=== PATIENT | female | born 1950 | race Caucasian/White ===

== ENCOUNTER → 2018-12-15 16:02 | Outpatient (CLI) | payer MEDICARE, SELFPAY | PROVIDERS: Visit Provider Obstetrics & Gynecology | DX: R30.0 Dysuria (principal) | CPT/HCPCS: 87086; 87088 ==

== ENCOUNTER → 2020-02-05 16:08 | Outpatient (CLI) | payer MEDICARE, SELFPAY ==
[2020-02-08 16:31] LABS: HPV APTIMA, High Risk Negative (Negative)
[2020-02-08 16:33] LABS: HPV Reflexed? YES, CHARGE PATIENT
== END ==
PROVIDERS: Visit Provider Student in an Organized Health Care Education/Training Program
DX: Z12.4 Encounter for screening for malignant neoplasm of cervix (principal)
CPT/HCPCS: 87624; 88175; G0145

== ENCOUNTER 2020-05-22 12:19 | Day surgery (SDC) | payer MEDICARE, SELFPAY ==
--- NOTE | 2020-05-21 09:47 | EKG12_ITS ---
Test Reason : PRE-OP Blood Pressure : / mmHG Vent. Rate : 072 BPM Atrial Rate : 072 BPM P-R Int : 142 ms QRS Dur : 088 ms QT Int : 380 ms P-R-T Axes : 012 052 040 degrees QTc Int : 416 ms Normal sinus rhythm Normal ECG Confirmed by RADHA MCCOY, MARKELL ([id number]), news copy editor KYLEE BARBOZA ([id number]) on 05/22/2020 10:51:20 AM Referred By: Deanna North Confirmed By:MARKELL GARCIA MD
[2020-05-21 11:12] LABS: Hematocrit 43.2 % (37-47); Hemoglobin 14.1 g/dL (12.0-15.0); Mean Corp Hgb Conc 32.6 g/dL (32-36); Mean Corpuscular Hgb 29.3 pg (27.0-32.0); Mean Corpuscular Volume 89.8 fL (81-99); Mean Platelet Vol. 10.2 fl (6.2-12.0); Platelet Count 335 K/mm3 (150-450); RBC Distribution Width CV 12.5 % (11.6-14.6); RBC Distribution Width SD 41.3 fl (35.1-43.9); Red Blood Count 4.81 M/mm3 (4.2-5.4); White Blood Count 9.6 K/mm3 (4.4-11.0)
--- NOTE | 2020-05-21 17:43 | HP.PCM_ITS ---
History and Physical Date of Admission: 05/22/20 HPI Kateryna Avilez, a 70 year old female 2 0 0 0 2, presents for Exam under anesthesia, vaginal/cervical biopsy on May 22, 2020 at 1:50. Noted vaginal and cervical erosion secondary to pessary this summer 2019. Patient had pessary holiday and had several visits to evaluate healing. She had been using estrogen cream, increased dosing as well. She continues to have erosion on most recent exam. As this has been3-4 months of nonhealing, with friability noted on last exam, decision for biopsy was made. Due to bleeding on last exam, decision for OR evaluation was made. MEDICATIONS HISTORY: Current medications prescribed by our practice are: 1. estradiol 0.01% (0.1 mg/gram) vaginal cream, 1 gram per vagina twice weekly 2. Trimo-Burt Jelly 0.025 %-0.01 % vaginal, apply prn Patient is also takin. Prilosec 10 mg Capsule, Delayed Release(E.C.), daily 2. potassium 99 mg tablet, daily 3. triamterene 37.5 mg-hydrochlorothiazide 25 mg capsule 4. levothyroxine 50 mcg tablet, 1 daily Medical History Hypertension, GERD, Hiatal hernia, hypothyroidism ALLERGIES: NKDA, NKDA, Cipro, Lightheaded, severe gi distress, Pyridium, Lightheadedness, severe gi distress, Cipro, Stomach ache, Pyridium, Stomach ache, Macrobid, Feels hot or feverish, Triamterene and Rash SOCIAL HISTORY: Alcohol Use - RARELY Smoking - denies smoking Drugs - denies FAMILY HISTORY: Family history of Colon Cancer. Mother: Renal Cell CA. MENSTRUAL HISTORY: LMP Known?- Postmenopausal, age 48, Age Onset Menarche - 14 PAST PREGNANCIES: Total Pregnancies - 2; Full Term Pregnancies - 2; Premature - 0; Abortions, Induced - 0; Abortions, Spontaneous - 0; Ectopics - 0; Multiple Births - 0; Living Children - 2 SURGICAL HISTORY: 1. Gallbladder/Appy, ; - 2. cataract surgery bilateral, 2018 ; - Review of Systems: GENERAL - Denies fever, or chills SKIN - Denies skin changes EYES - Denies visual changes EARS - Denies difficulty hearing NOSE - Denies nasal congestion or bleeding MOUTH - Denies sore throat or difficulty swallowing NECK - Denies pain or swelling RESPIRATORY - Denies shortness of breath or wheezing CARDIOVASCULAR - Denies palpitations or chest pain GASTROINTESTINAL - Denies nausea, vomiting, diarrhea, constipation GENITOURINARY - pessary MUSCULOSKELETAL - Denies joint or muscle pain NEUROLOGICAL - Denies localized numbness or weakness PSYCHIATRIC - Denies depression or anxiety ENDOCRINE - Denies heat or cold intolerance, weight loss or gain HEMATO-IMMUNOLOGIC - Denies excesive bleeding with cuts PHYSICAL EXAM BP- 164/78 Sitting, Right arm, regular cuff Weight- 151.95608 lbs Height- 62.50 inch BMI:27.23 CONSTITUTIONAL - NAD, well nourished, and well developed SKIN - No rash, lesions, or ulcers HEENT - Normocephalic, PERRLA, EOMI NECK - No nodes, no nuchal rigidity and thyroid normal size and texture LYMPH NODES - Palpation of lymph nodes in neck and groins within normal limits LUNGS - normal respiratory rate and rhythm ABDOMEN - Without hepatosplenomegaly, distention, masses, rebound, or guarding; normal bowel sounds; no hernias EXTREMITIES - No edema or calf tenderness NEUROLOGICAL - Cranial nerves II-XII grossly intact PSYCHIATRIC - A and O to time, place, person, mood and affect External Genitial Vagina - non-tender without lesions Urethra/Urethral Meatus - non-tender Bladder - non-tender Vagina - atrophy noted Cervix - Stable from last visit. Bleeding with minimal manipulation with sp eculum. and Mostly posterior and left cervix/vaginal region ASSESSMENT/PLAN: 1. Erosion And Ectropion Of Cervix Uteri Stable on exam, friable on exam. Bleeding more easily today. 3 months since original erosion noted. Due to lack of improvement over time without pessary use, will plan for EUA, biopsy Patient amenable. In OR due to bleeding risk and for adequate visualization of erosion areas. R/B/A discussed. Risks include, but are not limited to: risk of bleeding to the point of transfusion, infection, injury to surrounding tissue such as bowel or bladder requiring prolonged luevano use, VTE, ICU admission. Pt aware and consented Labs and EKG preop
[2020-05-22] VITALS (7 sets, daily range): BP systolic 122–129; BP diastolic 52–73; PULSE 78–87; RESP 16–18; TEMP 36.7–36.8; O2SAT 95–100; BMI 26.9
--- NOTE | 2020-05-22 | IMM_PTH ---
PATIENT: BARBARA BARTHOLOMEW [place] [facility] [place][id number] AGE/SX: 70/F ROOM: RE05/22/[address]: Dr. Deanna North DO : 1950 BED: DIS: 05/22/2020 SPEC #: [id number] RECD: 05/26/20 11:19 STATUS: ANDREW REQ #: [id number] DAVON: 05/22/20 00:[address]: Deanna North DEPT: IMMUNOHISTOCHEMISTRY RECD BY: Shani Hsu ENTERED: 05/26/20 11:20 SP TYPE: IMMUNO OTHR DR: Dr. Carlos Manuel Rm MD Tissues: Uterine cervix, NOS Procedures: p16 (initial) KI-67 (add) PHYSICIAN & INSTITUTION [place] [id number] SPECIMEN INFORMATION: Tissue Source: Cervical biopsy Clinical Info: Cervical and vaginal erosion Specimen Number: [id number] CPT code: 41618, 07639 METHODOLOGY: Deparaffinized sections of prefer/formalin-fixed tissue or PAP/DQ stained slides are incubated with monoclonal/polyclonal antibodies/oligonucleotide probes. Localization is made via biotin free immunoperoxidase method. Appropriate controls are performed and reacted as expected. Results on target cell population are indicated in the following table: RESULTS: ANTIBODY / CLONE RESULT P16 (E6H4) positive, focal, patchy Ki-67 (30-9) negative These tests were developed and their performance characteristics determined by [facility]. They may not have been cleared or approved by the U.S. Food and Drug Administration. The FDA has determined that such clearance or approval is not necessary. The above immunohistochemical/dualISH markers are ordered and reviewed by the Pathologist. INTERPRETATION: Cervical biopsy: Focal HPV change suspected. AM:eugene 05/27/20
[2020-05-22] MEDS: Lactated Ringers 1,000 ML 100 ML IV (13:15)
--- NOTE | 2020-05-22 13:38 | DCINST_ITS ---
Discharge Activity: Return to Normal Activity, May Shower May resume sexual activity in: 4 weeks Weight Bearing Status: Weight bearing as tolerated Call your doctor if you observe: Inability to urinate, Inability to have a bowel movement, Using more than one pad per hour, Shortness of breath Allergies/Adverse Reactions: Allergies ciprofloxacin Allergy (Verified 05/22/20 12:53) NEEDS FOLLOW-UP nitrofurantoin Allergy (Verified 05/22/20 12:52) NEEDS FOLLOW-UP Medications to take at Discharge Acetaminophen [Tylenol Extra Strength] 500 - 1,000 mg PO Q6H PRN PRN 05/16/20 Cholecalciferol (Vitamin D3) [Vitamin D3] 2,000 unit PO DAILY 05/16/20 Colon Health 1 tab PO DAILY 05/16/20 Levothyroxine Sodium [Synthroid] 50 mcg PO DAILY 05/16/20 Omeprazole Magnesium 20 mg PO DAILY 05/16/20 Potassium Chloride 10 meq PO DAILY 05/16/20 Triamterene 37.5MG/Hctz 25MG [Dyazide (G)] 1 cap PO DAILY 05/16/20 Primary Care Physician: Carlos Manuel Rm MD [Primary Care Provider] - Test Results: Test results from this visit will be discussed in further detail at your follow- up appointment, if applicable. Please Follow Up With: Deanna North DO When: Previously scheduled appointment Proposed Discharge Date: 05/22/20
--- NOTE | 2020-05-22 13:38 | PCM.OPRPT ---
Report of Operation Date of Procedure: 05/22/20 Pre-Operative Diagnosis: Nonhealing cervical and vaginal erosions after pessary Post-Operative Diagnosis: Nonhealing cervical and vaginal erosions after pessary Surgery/Procedure Performed:: Exam under anesthesia, cervical biopsy Description of Surgical Findings:: Normal-appearing external genitalia, moderate uterine descensus. Anterior prolapse. Small areas of erosion laterally at the cervix on both sides left larger than right. Right erosion minimal at this time. Left erosion appeared to be smaller than exam in office last. Specimen's removed: Cervical biopsy Estimated Blood Loss (mL): 10 cc Fluids Replaced: 600 cc Description of Procedure: Patient taken to the operating room anesthesia initiated. Patient placed in the dorsal lithotomy position and prepped and draped in the usual sterile fashion. Weighted speculum placed in the posterior vagina and Lucas retractor utilized to visualize the cervix. Findings as previously dictated above. 2 cervical biopsies were taken on the left side at the erosion edge. Monsel's placed at biopsy sites, hemostatic. At the end of the procedure needle, lap, sponge counts were correct x2.
[2020-05-22] MEDS: FERRIC SUBSULFATE 8 GM SOLN (13:55)
--- NOTE | 2020-05-22 14:05 | CER_PTH ---
PATIENT: BARBARA BARTHOLOMEW LOC: [facility] – [place] U#:[id number] AGE/SX: 70/F ROOM: RE05/22/[address]: Dr. Deanna North DO : 1950 BED: DIS: 05/22/2020 SPEC #: [id number] RECD: 05/22/20 14:51 STATUS: ANDREW RE #: [id number] DAVON: 05/22/20 14:[address]: Deanna North DEPT: SURGICAL PATHOLOGY RECD BY: Lee Ann Mckee ENTERED: 05/23/20 07:28 SP TYPE: CERV OTHR DR: Dr. Carlos Manuel Rm MD Tissues: Uterine cervix, NOS Procedures: Surgery Specimen Level IV HEADER OPERATION: Exam under anesthesia with cervical biopsy PRE-OP DIAGNOSIS: Cervical and vaginal erosion TISSUE SUBMITTED: Cervical biopsy MICROSCOPIC DIAGNOSIS Cervix, biopsy: Acute cervicitis. Focal HPV change suspected. See comment. AM:eugene 05/26/20 COMMENT Results from immunohistochemistry ([id number]) for surrogate HPV marker (p16) will be reported separately. MICROSCOPIC DESCRIPTION Slides are reviewed. GROSS DESCRIPTION Received in fixative is one container labeled with the patient's name and designated cervical biopsy. The specimen consists of two irregular fragments of light [place] soft tissue that in aggregate measure 0.6 x 0.3 x 0.1 cm. The specimen is totally submitted in one cassette. / SJ:rg 05/23/20 TC:2 CPT: 04067
== END 2020-05-22 15:23 | disposition home or self-care (01) ==
LOC: SDC 12:20 → AC 12:23
PROVIDERS: PCP Family Medicine; Referring Provider Student in an Organized Health Care Education/Training Program; Visit Provider Student in an Organized Health Care Education/Training Program
PROC: (CPT 57410; principal; 2020-05-22 13:55)
DX: N72 Inflammatory disease of cervix uteri (principal); E03.9 Hypothyroidism, unspecified; I10 Essential (primary) hypertension; K21.9 Gastro-esophageal reflux disease without esophagitis; Z79.899 Other long term (current) drug therapy; Z88.1 Allergy status to other antibiotic agents
CPT/HCPCS: 00940; 57500; 36415; 85027; 86850; 86900; 86901; 87426; 88305; 88341; 88342; 93005; C9803; J7120; J2405

== ENCOUNTER → 2021-11-23 | Outpatient (CLI) | payer MEDICARE, SELFPAY | END | disposition home or self-care (01) | LOC: LABSPEC 13:53 | PROVIDERS: PCP Family Medicine; Visit Provider Student in an Organized Health Care Education/Training Program | DX: N39.0 Urinary tract infection, site not specified (principal) | CPT/HCPCS: 87086; 87088 ==

== ENCOUNTER 2022-05-06 09:36 | Observation (INO) | payer MEDICARE, SELFPAY ==
--- NOTE | 2022-04-28 08:54 | EKG12_ITS ---
Test Reason : PRE-OP Blood Pressure : / mmHG Vent. Rate : 064 BPM Atrial Rate : 064 BPM P-R Int : 136 ms QRS Dur : 074 ms QT Int : 398 ms P-R-T Axes : 061 054 036 degrees QTc Int : 410 ms Normal sinus rhythm Nonspecific ST abnormality Abnormal ECG Confirmed by KIM MCCOY, BESSY ([id number]), medical transcription editor KYLEE BARBOZA ([id number]) on 05/04/2022 10:58:05 AM Referred By: SANTOS Confirmed By:PAULIE ALVAREZ MD
[2022-04-28 10:03] LABS: Hematocrit 43.5 % (37-47); Hemoglobin 14.6 g/dL (12.0-15.0); Mean Corp Hgb Conc 33.6 g/dL (32-36); Mean Corpuscular Hgb 30.5 pg (27.0-32.0); Mean Platelet Vol. 9.8 fl (6.2-12.0); Platelet Count 338 K/mm3 (150-450); RBC Distribution Width CV 13.2 % (11.6-14.6); RBC Distribution Width SD 44.6 fl (35.1-43.9); Red Blood Count 4.78 M/mm3 (4.2-5.4); White Blood Count 8.3 K/mm3 (4.4-11.0)
[2022-04-28 10:50] LABS: Magnesium 1.8 mg/dL (1.6-2.6); Thyroid Stim Hormone (TSH) 1.95 uIU/mL (0.358-3.74)
[2022-04-28 14:27] LABS: Anion Gap 9 (5-15); BUN 26 mg/dL (7-18); BUN/Creat Ratio 24.8 RATIO (10-20); Calcium,Total 9.2 mg/dL (8.5-10.1); Chloride 104 mmol/L (98-107); Creatinine, Serum 1.05 mg/dL (0.55-1.02); EST Glomerular Filtration Rate 55 mL/min (>60); Est Glom Filt Rate - Afr Amer 66 mL/min (>60); Glucose 92 mg/dL (74-106); Potassium 4.1 mmol/L (3.5-5.1); Sodium Level 138 mmol/L (136-145)
[2022-05-06] VITALS (13 sets, daily range): BP systolic 124–148; BP diastolic 53–80; PULSE 73–97; RESP 12–18; TEMP 36.4–36.9; O2SAT 94–100; BMI 28.5
--- NOTE | 2022-05-06 | HYST_PTH ---
PATIENT: BARBARA BARTHOLOMEW LOC: [facility] U#:[id number] AGE/SX: 72/F ROOM: [facility] [place] RE05/06/[address]: Dr. Deanna North DO : 1950 BED: 1 DIS: 05/08/2022 SPEC #: [id number] RECD: 05/07/22 09:54 STATUS: ANDREW MUNIZ #: [id number] DAVON: 05/06/22 00:[address]: Deanna North DEPT: SURGICAL PATHOLOGY RECD BY: José Peterson ENTERED: 05/07/22 09:54 SP TYPE: HYSTERECT OTHR DR: Dr. Carlos Manuel Rm MD Tissues: Uterus, NOS Procedures: Surgery Specimen Level V HEADER OPERATION: ERAS, TVH, anterior repair, cystoscopy, uterosacral PRE-OP DIAGNOSIS: Pelvic organ prolapse TISSUE SUBMITTED: Uterus, cervix MICROSCOPIC DIAGNOSIS Uterus, hysterectomy: Cervix ? nabothian cysts and mild chronic inflammation. Endometrium ? inactive endometrium with focal cystic change. Myometrium ? focal superficial adenomyosis and Banal calcifications of vessel schuster. AM:eugene 05/10/2022 MICROSCOPIC DESCRIPTION Slides are reviewed. GROSS DESCRIPTION Received in fixative is one container labeled with the patient's name and designated uterus, cervix. The specimen consists of a hysterectomy specimen consisting of uterus with cervix weighing 20 gm and measuring 6.5 x 3 x 2 cm. The serosal surface is focally ragged. The ectocervical mucosa is unremarkable. The external os is pinpoint in contour. The endocervical canal measures 3.4 cm in length and the endocervical mucosa is unremarkable. The endometrial cavity is narrow and measures up to 1 cm in length. Sections of the uterine wall do not reveal any mass lesion and it measures up to 1 cm in thickness. 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 / SJ:eugene 05/07/2022 TC:5 CPT: 73912
[2022-05-06] MEDS: Gabapentin 600 MG Tablet PO (06:15)
[2022-05-06] MEDS: Magnesium 2 GM for ERAS IV (06:16)
[2022-05-06] MEDS: Acetaminophen 500 MG Tablet 1000 MG PO ×3 (06:16→17:58)
[2022-05-06] MEDS: Lactated Ringers 1,000 ML 40 ML IV ×2 (06:16→09:00)
[2022-05-06] MEDS: Scopolamine 1mg/72hr Patch 1 PATCH TD (06:58)
--- NOTE | 2022-05-06 06:58 | PCM.HP.BLA ---
History and Physical Date of Admission: 05/06/22 HPI: 72-year-old female with pelvic organ prolapse plan for total vaginal hysterectomy, bilateral salpingo-oophorectomy, anterior and posterior repair, uterosacral ligament suspension, and cystoscopy. Denies headache or vision changes, chest pain or shortness of breath, nausea or vomiting, diarrhea or constipation, fevers or chills, skin rashes, vaginal bleeding. 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 History of recurrent UTIs 2. Hypertension 3. GERD 4. Prolapse 5. Hypothyroidism Surgical history: 1. Cataract surgery in 2019 2. Cholecystectomy 3. Appendectomy 4. Intraoperative colposcopy Medications 1. Caltrate 2. Clobetasol cream 3. Cystex 4. Omeprazole 5. Potassium chloride 6. Triamterene-hydrochlorothiazide 7. Levothyroxine 8. Fluticasone Social history: Denies tobacco, alcohol, drug use Allergies: Macrobid, ciprofloxacin, Pyridium, Bactrim Review of system: Negative otherwise stated above Physical exam Blood pressure 140/80, heart rate 76, respirations 17, temp 97.6 ?F, oxygen saturation 98% on room air General: No acute distress HEENT: Normal cephalic/atraumatic, PERRLA Cardiac: Regular rate and rhythm no murmur rubs or gallops Respiratory: Clear to auscultation bilaterally Abdomen: Soft, nontender, nondistended Extremities: No edema Neurologic: No focal deficits, cranial nerves II through XII grossly intact Musculoskeletal: Strength out of 5 throughout all extremities Assessment/plan: 72-year-old female with pelvic organ prolapse plan for total vaginal hysterectomy, bilateral salpingo-oophorectomy, anterior and posterior repair, uterosacral ligament suspension, and cystoscopy. -All risk, benefits, alternatives discussed with patient. Risk include but are not limited to: Risk of bleeding to the point transfusion, infection, injury to surrounding tissue including bowel/bladder/major abdominal vessels, VTE, ICU admission. Patient aware and consented.
[2022-05-06 07:11] LABS: Bedside Glucose 85 mg/dL (74-106)
[2022-05-06] MEDS: Cefazolin 2 GM in 0.9% Normal Saline 100 ML IV (07:34)
[2022-05-06] MEDS: Lubricating Jelly 60 GM Tube 30 GM (07:35)
--- NOTE | 2022-05-06 07:35 | PCM.OPRPT ---
Report of Operation Date of Procedure: 05/06/22 Pre-Operative Diagnosis: Pelvic organ prolapse Post-Operative Diagnosis: Pelvic organ prolapse Surgery/Procedure Performed:: Total vaginal hysterectomy, uterosacral ligament suspension, anterior repair, cystoscopy Description of Surgical Findings:: Normal-appearing external genitalia. Grade 3 anterior and cervical prolapse. Grade 1 posterior prolapse. Cervix flush with vagina. Type of Anesthesia: General Specimen's removed: Uterus and cervix Estimated Blood Loss (mL): 50 cc Fluids Replaced: 1200cc Description of Procedure: Indication/risk/benefits: 72-year-old female with pelvic organ prolapse plan for total vaginal hysterectomy, bilateral salpingo-oophorectomy, anterior and posterior repair, uterosacral ligament suspension, cystoscopy. All risk, benefits, alternatives discussed with patient. Risk include but are not limited to: Risk of bleeding twin transfusion, infection, injury to surrounding tissue including bowel/bladder/uterine perforation, VTE, ICU admission. Patient were consented. Procedure: Patient taken to the operating room and placed under general anesthesia. Patient placed in the dorsal lithotomy position prepped and draped in the usual sterile fashion. Yu catheter placed. Weighted speculum placed in the posterior vagina and right angle placed anteriorly. Clamps placed at the anterior and posterior cervix. 10 cc 2% lidocaine injected circumferentially at the cervicovaginal junction. Scalpel incised tissue at the cervicovaginal junction. Dissection of vaginal mucosa away from the cervix completed with French scissors and blunt dissection. Posterior peritoneum identified grasped and incised with French scissors. Posterior peritoneum tagged with stitch. Long weighted speculum placed. Further dissection anteriorly completed with blunt and sharp dissection. Anterior peritoneum grasped with pickups and incised using scissors. Left uterosacral and left cardinal ligaments suture-ligated. Right uterosacral and cardinal ligaments suture-ligated. Uterosacral ligaments were tagged. Dissection continued to the level of the utero ovarian ligament. Left utero-ovarian ligament grasped with a clamp, French scissors used to free left cornua. Free tie was placed at the utero-ovarian ligament, followed by a transfixation suture. Filmy colonic adhesions noted at the right cornua, lysed with Metzenbaum scissors, allowing colon and epiploic fat to fall away from this area. Right utero-ovarian ligament grasped with a clamp, French scissors used to free right cornua. Right utero-ovarian ligament free tied and then suture ligated with transfixation stitch. Uterus removed. Unable to visualize bilateral tubes and ovaries due to bowel and epiploic fat location in pelvis. Therefore her bilateral salpingo-oophorectomy was not completed. Posterior peritoneum was sutured with a running stitch. Uterosacral ligaments were tied together. Colpotomy was sutured closed with a running stitch. Anterior repair was then completed. Anterior vagina was grasped with 2 Allis clamps. 10 cc lidocaine was used for hydrodissection. Scalpel used to incise vaginal mucosa between Allis clamps. Additional Allis clamps placed laterally. Bladder dissected away from vaginal epithelium using Metzenbaum scissors and blunt dissection. Interrupted stitch placed at the junction of the endopelvic fascia and vaginal epithelium in order to lift the bladder away from the vaginal epithelium. Vaginal epithelium trimmed and then reapproximated with running locking stitch. On inspection posterior prolapse was not noted, repair not completed. Yu catheter removed. Cystoscopy completed noting intact bladder dome and bilateral ureteral jets. Yu catheter replaced. At the end of the procedure all needle, lap, sponge counts were correct. Urine output: 500 cc clear urine Complications None.
[2022-05-06] MEDS: Lidocaine 2% /Epi 1:100 (20ml) 20 ML VIAL (08:58)
[2022-05-06] MEDS: Ondansetron 4 MG/2 ML Vial IV (09:32)
[2022-05-06] MEDS: oxyCODONE 5 MG Tablet PO (12:29)
[2022-05-06] MEDS: Ibuprofen 600 MG Tablet PO ×2 (15:43→21:08)
[2022-05-06] MEDS: Potassium Chloride Oral Tablet 10 MEQ PO (15:43)
[2022-05-06] MEDS: 0.9% Saline Lock 10 ML Syringe IV (15:52)
[2022-05-06] MEDS: Docusate Sodium 100 MG Capsule PO (21:08)
[2022-05-06] MEDS: Pantoprazole Sodium 40 MG Tablet PO (21:08)
[2022-05-06] MEDS: Levothyroxine 50 MCG Tablet PO (21:08)
[2022-05-07 00:51] VITALS: BP 118/61; PULSE 85; RESP 18; TEMP 36.6; O2SAT 93
[2022-05-07] MEDS: Acetaminophen 500 MG Tablet 1000 MG PO ×4 (01:00→17:39)
[2022-05-07 04:45] VITALS: BP 118/63; PULSE 88; RESP 18; TEMP 37.1; O2SAT 97
[2022-05-07] MEDS: Ibuprofen 600 MG Tablet PO ×3 (04:50→15:43)
[2022-05-07 06:13] LABS: Hematocrit 36.2 % (37-47); Mean Corp Hgb Conc 33.1 g/dL (32-36); Mean Corpuscular Hgb 29.9 pg (27.0-32.0); Mean Corpuscular Volume 90.3 fL (81-99); Mean Platelet Vol. 9.8 fl (6.2-12.0); Platelet Count 348 K/mm3 (150-450); Red Blood Count 4.01 M/mm3 (4.2-5.4); White Blood Count 10.6 K/mm3 (4.4-11.0)
[2022-05-07 06:39] LABS: Anion Gap 7 (5-15); BUN 19 mg/dL (7-18); BUN/Creat Ratio 22.5 RATIO (10-20); Calcium,Total 8.3 mg/dL (8.5-10.1); Chloride 96 mmol/L (98-107); Creatinine, Serum 0.85 mg/dL (0.55-1.02); EST Glomerular Filtration Rate 70 mL/min (>60); Est Glom Filt Rate - Afr Amer 85 mL/min (>60); Estimated Creatinine Clearance 48.76 ml/min; Glucose 120 mg/dL (74-106); Potassium 3.8 mmol/L (3.5-5.1); Sodium Level 129 mmol/L (136-145)
[2022-05-07 07:39] VITALS: BP 121/48; PULSE 84; RESP 18; TEMP 36.7; O2SAT 96
[2022-05-07 07:45] VITALS: O2SAT 94
[2022-05-07] MEDS: Ondansetron ODT 4 MG Tablet PO ×2 (07:46→21:51)
--- NOTE | 2022-05-07 08:22 | PCM.PN.OB ---
Subjective Subjective Pain controlled. No bleeding. Tolerating fluids and some breakfast. Feeling worn out. Objective Data Objective Data Vital Signs: Vital Signs Temp Pulse Resp BP Pulse Ox O2 Del Method O2 Flow Rate 98.1 F 84 18 121/48 H 96 Room Air 4 05/07/22 07:39 05/07/22 07:39 05/07/22 07:39 05/07/22 07:39 05/07/22 07:39 05/07/22 07:48 05/06/22 10:45 Oxygen Flow Rate (L/min) 4 Oxygen Delivery Method Room Air Weight: 73 kg Body Mass Index (BMI) 28.5 Intake & Output: Intake and Output for Last 24 Hours 05/05/22 05/06/22 05/07/22 23:59 23:59 23:59 Intake Total 3434 / 3434 1200 / 1200 Output Total 860 / 860 1000 / 1000 Balance 2574 / 2574 200 / 200 Lab / Micro Data Attestation: I reviewed the patient's lab results. Result Diagrams: 05/07/22 05:25 05/07/22 05:25 Labs: Laboratory Results - last 24 hr 05/07/22 05:25: Sodium 129 L, Potassium 3.8, Chloride 96 L, Carbon Dioxide 26.0, Anion Gap 7, BUN 19 H, Creatinine 0.85, Estim Creat Clear Calc 48.76, Est GFR (MDRD) Af Amer 85, Est GFR (MDRD) Non-Af 70, BUN/Creatinine Ratio 22.5 H, Glucose 120 H, Calcium 8.3 L 05/07/22 05:25: WBC 10.6, RBC 4.01 L, Hgb 12.0, Hct 36.2 L, MCV 90.3, MCH 29.9, MCHC 33.1, RDW Std Deviation 43.0, RDW Coeff of Aguila 13.0, Plt Count 348, MPV 9.8 Physical Exam Const alert, oriented x3 and no apparent distress General Appearance: comfortable HEENT normocephalic Resp normal respiratory effort, no use of accessory muscles and clear to auscultation bilaterally Cardio regular rate GI soft to palpation, non-tender, non-distended and no masses Extremity no pedal edema Neuro moves all extremities, no focal motor deficits and no sensory deficits noted Psych mental status grossly normal Assessment & Plan (1) Other acute postprocedural pain: PLAN: Postop day 1 status post total vaginal hysterectomy, uterosacral ligament suspension, anterior repair, cystoscopy for pelvic organ prolapse. Pain controlled. Tolerating diet. Slight hyponatremia noted this morning. Will give NS and repeat BMP at noon. If resolved will plan for discharge home today. (2) Hyponatremia:
--- NOTE | 2022-05-07 08:24 | PCM.DC ---
Discharge Instructions Diet Discharge Diet: No restrictions Activity Discharge Activity: Return to Normal Activity and May Shower May resume sexual activity in: 6 weeks Weight Bearing Status: Weight bearing as tolerated Lifting Restrictions: no greater than 10 pounds Dressing / Incision Call your doctor if your incision/area has: Continuous Slow Oozing, Increased Redness and Foul Smelling Discharge Call your doctor if you observe: Fever of 101 or Higher, Inability to urinate, Inability to have a bowel movement, Using more than 1 pad per hour, Shortness of breath, Swelling in the ankles, Chest pain and Uncontrolled pain Cleanse incision/area with: Soap & Water and Keep Dressing Clean & Dry Follow Up Care Please Follow Up With: Deanna North DO When: 2 weeks post operative appointment Test Results: Test results from this visit will be discussed in further detail at your follow-up appointment, if applicable. Discharge Plan Admission Admit Date/Time: 05/06/22 09:36 Primary Reason for Your Visit: Hysterectomy Attending Provider: Deanna North Primary Care Provider: Carlos Manuel Rm Discharge Orders/Prescriptions Prescriptions: New oxycodone 5 mg tablet 5 mg PO Q6H PRN (Reason: pain (scale score 7-10)) 3 Days Qty: 16 0RF Continued potassium chloride 10 MEQ capsule, extended release 10 meq PO DAILY triamterene-hydrochlorothiazid 1 CAP capsule 1 cap PO DAILY levothyroxine 50 MCG tablet 50 mcg PO QHS cholecalciferol (vitamin D3) 2,000 UNIT capsule 2,000 unit PO DAILY omeprazole magnesium 20 MG capsule,delayed release(DR/EC) 40 mg PO QHS fluticasone propionate [Flonase Allergy Relief] 50 mcg/actuation [place],Suspension 1 spray INTRANASAL DAILY Rx Instructions: administer into each nostril Referrals / Follow Up: Carlos Manuel Rm MD [Primary Care Provider] - Disposition Disposition (needs filled in before D/C Order can be placed): Home, Self Care
[2022-05-07] MEDS: 0.9% Saline Lock 10 ML Syringe IV (08:45)
[2022-05-07] MEDS: 0.9% Normal Saline 1,000 ML 100 ML IV (08:46)
--- NOTE | 2022-05-07 10:02 | CASEMGMT ---
JAMES CM in to discuss VILLARREAL form with patient. RN CM explained VILLARREAL form, patient voiced understanding. Pt signed form and filed in chart. Pt provided with a copy of signed VILLARREAL form. Patient had no further questions or concerns at this time.
[2022-05-07] MEDS: Docusate Sodium 100 MG Capsule PO ×3 (11:10→20:38)
[2022-05-07] MEDS: Potassium Chloride Oral Tablet 10 MEQ PO (11:10)
[2022-05-07] MEDS: Enoxaparin 40 MG/0.4 ML Syringe SC (11:10)
[2022-05-07] MEDS: Ensure Plus High Protein 120 ML LIQUID PO ×2 (11:47→17:38)
--- NOTE | 2022-05-07 11:50 | CASEMGMT ---
Social Work As per preadmissions nurse, pt has LW/POA, and had stated her spouse is her POA. Pt is not able to bring in the documents however. BRIT Soto
[2022-05-07 12:26] LABS: Anion Gap 8 (5-15); BUN 21 mg/dL (7-18); BUN/Creat Ratio 25.7 RATIO (10-20); Calcium,Total 8.2 mg/dL (8.5-10.1); Chloride 96 mmol/L (98-107); Creatinine, Serum 0.82 mg/dL (0.55-1.02); EST Glomerular Filtration Rate 73 mL/min (>60); Est Glom Filt Rate - Afr Amer 88 mL/min (>60); Estimated Creatinine Clearance 50.55 ml/min; Glucose 111 mg/dL (74-106); Potassium 3.8 mmol/L (3.5-5.1); Sodium Level 130 mmol/L (136-145)
--- NOTE | 2022-05-07 15:20 | CON.PCM.HO_ITS ---
Assessment & Plan Assessment/Plan (1) Hyponatremia: PLAN: Plan #Acute hyponatremia * sodium is 130; was 129 yesterday * TSH is WNL. She is on a diuretic which could be contributing to hyponatremia * check FeUrea, urine osmolality and serum osmolality as well as urine sodium * hold diuretic. Hydrate gently with IVF NS * trend sodium * if sodium worsens, consider nephrology consult * #PElvic prolapse: management as per primary team gynecology DVT prophylaxis: As per primary team Thank you for the courtesy of the consult. Please do not hesitate to reach out to hospitalist team with any questions or concerns. HPI Consult Data Date of Consult: 05/07/22 HPI Narrative Reason for Consultation: hyponatremia HPI Narrative: BARBARA BARTHOLOMEW, is a 72 F with a PMh as outlined who was admitted to the wardrobe consultant service for total vaginal hysterectomy, ?bilateral salpingo-oophorectomy, anterior and posterior repair, uterosacral ligament suspension, and cystoscopy o/a of pelvic prolapse. Hospitalist service was consulted for management of hyponatremia. Patient had sodium of 129 yesterday and sodium of 130 today. She denies any nausea or vomiting, and has been drinking adequate fluids. She is on a diuretic and also has hypothyroidism. Last TSH on 04/28/2022 was 1.95. REview of systems was otherwise negative. Labs showed last sodium of 130 this morning. [facility] Medical History (Updated 05/07/22 @ 08:[address] Deanna North, DO) Anxiety Arthritis Back pain Bladder disease Cancer Depression Gastric reflux History of diverticulosis History of edema History of hiatal hernia Hypertension Leg cramps Loss of hearing Low iron Non-smoker Post-menopausal Thyroid disease Wears glasses Home Medications cholecalciferol (vitamin D3) 50 mcg (2,000 unit) capsule 2,000 unit PO DAILY 05/16/20 [History Last Taken 05/05/22] levothyroxine 50 mcg tablet 50 mcg PO QHS 05/16/20 [History Last Taken 05/05/22] omeprazole magnesium 20 mg capsule,delayed release 40 mg PO QHS 05/16/20 [History Last Taken 05/05/22] potassium chloride 10 mEq capsule,extended release 10 meq PO DAILY 05/16/20 [History Last Taken 05/05/22] triamterene 37.5 mg-hydrochlorothiazide 25 mg capsule 1 cap PO DAILY 05/16/20 [History Last Taken 05/05/22] fluticasone propionate 50 mcg/actuation nasal spray,suspension (Flonase Allergy Relief) 1 spray intranasal DAILY 04/28/22 [History Last Taken 05/05/22] oxycodone 5 mg tablet 5 mg PO Q6H PRN pain (scale score 7-10) 3 days #16 tabs 05/06/22 [Rx Last Taken Unknown] Allergy/AdvReac Type Severity Reaction Status Date / Time ciprofloxacin Allergy NEEDS Verified 05/06/22 06:17 FOLLOW-UP nitrofurantoin Allergy NEEDS Verified 05/06/22 06:17 FOLLOW-UP sulfamethoxazole AdvReac Vomiting Verified 05/06/22 06:17 [From Bactrim] trimethoprim [From Bactrim] AdvReac Vomiting Verified 05/06/22 06:17 Surgical History Hx of appendectomy Hx of cervical biopsy Hx of cholecystectomy Hx of colonoscopy Hx of esophagogastroduodenoscopy Hx of left cataract extraction Hx of right cataract extraction Social History Smoking Status: Never smoker ROS Constitutional Constitutional: Denies anorexia, chills, fatigue, fever(s), malaise or weakness Eyes Eyes: Denies change in vision ENT HEENT: Denies dysphagia, headache(s) or sore throat Cardiovascular Cardiovascular: Denies chest pain, dyspnea on exertion, edema, lightheadedness, orthopnea, palpitations, paroxysmal nocturnal dyspnea, rapid heart rate or syncope Respiratory/Chest Respiratory/Chest: Denies cough, excessive phlegm production, shortness of breath at rest or shortness of breath with exertion Gastrointestinal Gastrointestinal: Denies abdominal pain, diarrhea, nausea or vomiting Genitourinary Genitourinary: Denies burning urination, dysuria or urinary frequency Musculoskeletal Musculoskeletal: Denies arthralgias Neurologic Neurologic: Denies confusion, dizziness, focal weakness, headache(s) or seizures Psychiatric Psychiatric: Denies anxiety Hematologic/Lymphatic Hematologic/Lymphatic: Denies anemia Physical Exam Const alert, oriented x3 and no apparent distress General Appearance: cooperative HEENT normocephalic, head/scalp atraumatic, hearing grossly normal bilaterally and moist oral mucous membranes Mouth: oral and palatal mucosa normal Neck no lymphadenopathy and supple Resp normal respiratory effort, no retractions, no use of accessory muscles and clear to auscultation bilaterally Cardio regular rate, regular rhythm, S1 normal heart sound, S2 normal heart sound and no murmurs GI normal to inspection, nondistended, normoactive bowel sounds, soft to palpation, non-tender and non-distended Extremity normal to inspection, full ROM and no clubbing, cyanosis or edema Neuro oriented x3, CN's II-XII intact bilaterally and moves all extremities Sensorium / Orientation: awake Motor Exam: strength 5/5 throughout Psych affect normal Lab / Micro Data Result Diagrams: 05/07/22 05:25 05/07/22 16:16 Labs: Laboratory Results - last 24 hr 05/07/22 05:25: Sodium 129 L, Potassium 3.8, Chloride 96 L, Carbon Dioxide 26.0, Anion Gap 7, BUN 19 H, Creatinine 0.85, Estim Creat Clear Calc 48.76, Est GFR (MDRD) Af Amer 85, Est GFR (MDRD) Non-Af 70, BUN/Creatinine Ratio 22.5 H, Glucose 120 H, Calcium 8.3 L 05/07/22 05:25: WBC 10.6, RBC 4.01 L, Hgb 12.0, Hct 36.2 L, MCV 90.3, MCH 29.9, MCHC 33.1, RDW Std Deviation 43.0, RDW Coeff of [place] 13.0, Plt Count 348, MPV 9.8 05/07/22 11:53: Sodium 130 L, Potassium 3.8, Chloride 96 L, Carbon Dioxide 26.0, Anion Gap 8, BUN 21 H, Creatinine 0.82, Estim Creat Clear Calc 50.55, Est GFR (MDRD) Af Amer 88, Est GFR (MDRD) Non-Af 73, BUN/Creatinine Ratio 25.7 H, Glucose 111 H, Calcium 8.2 L Charges/Coding Visit Charges Office Visits / Consults: 65234 IP Consult L3
[2022-05-07 15:52] VITALS: BP 127/64; PULSE 84; RESP 18; TEMP 36.7; O2SAT 95
[2022-05-07 17:18] LABS: Creatinine, Urine < 13.00 mg/dL (NO RANGE EST.); Urea Nitrogen, Urine 190 mg/dL (NO RANGE EST.); Urine Sodium 11 mmol/L (Not Establ.)
[2022-05-07 17:18] LABS: Anion Gap 7 (5-15); BUN 24 mg/dL (7-18); BUN/Creat Ratio 27.8 RATIO (10-20); Calcium,Total 7.8 mg/dL (8.5-10.1); Chloride 98 mmol/L (98-107); Creatinine, Serum 0.86 mg/dL (0.55-1.02); EST Glomerular Filtration Rate 68 mL/min (>60); Est Glom Filt Rate - Afr Amer 83 mL/min (>60); Estimated Creatinine Clearance 48.19 ml/min; Glucose 102 mg/dL (74-106); Potassium 4.1 mmol/L (3.5-5.1); Sodium Level 131 mmol/L (136-145)
[2022-05-07] MEDS: 0.9% Normal Saline 1,000 ML 125 ML IV (17:39)
[2022-05-07 19:41] LABS: Osmolality, Serum 278 mOsm/KG (280-301)
[2022-05-07 19:42] LABS: Osmolality, Urine 111 mOsm/KG
[2022-05-07 20:31] VITALS: BP 123/67; PULSE 75; RESP 18; TEMP 36.6; O2SAT 96
[2022-05-07] MEDS: Pantoprazole Sodium 40 MG Tablet PO (20:38)
[2022-05-08] MEDS: Acetaminophen 500 MG Tablet 1000 MG PO ×2 (00:37→06:54)
[2022-05-08] MEDS: 0.9% Normal Saline 1,000 ML 125 ML IV (00:38)
[2022-05-08 02:12] VITALS: BP 123/57; PULSE 79; RESP 18; TEMP 36.5; O2SAT 94
[2022-05-08 06:50] LABS: Anion Gap 7 (5-15); BUN 20 mg/dL (7-18); BUN/Creat Ratio 27.2 RATIO (10-20); Calcium,Total 7.7 mg/dL (8.5-10.1); Chloride 111 mmol/L (98-107); Creatinine, Serum 0.74 mg/dL (0.55-1.02); EST Glomerular Filtration Rate 82 mL/min (>60); Est Glom Filt Rate - Afr Amer 100 mL/min (>60); Estimated Creatinine Clearance 41.45 ml/min; Glucose 91 mg/dL (74-106); Potassium 3.8 mmol/L (3.5-5.1); Sodium Level 142 mmol/L (136-145)
[2022-05-08] MEDS: Levothyroxine 50 MCG Tablet PO (06:54)
--- NOTE | 2022-05-08 07:42 | PCM.DC.SUM ---
Providers Date of Admission: 05/06/22 Primary Care Physician: Dr. Carlos Manuel Rm MD Consultations 05/07/22 14:38 Consult: Hospitalist Routine Consulting Provider: Lana Bernard Reason for Consult: hyponatremia EMERGENT Consult: No MD Notified: Yes Date Notified: 05/07/22 Time Notified: 14:40 Method of Notification: via spok Reason For Visit: VAG HYSTER BSO A&P REPAIR USLS CYSTO Diagnosis Discharge Diagnosis (1) Hyponatremia: Status: Acute Code(s): E87.1 - Hypo-osmolality and hyponatremia Medications at Discharge Home Medications cholecalciferol (vitamin D3) 50 mcg (2,000 unit) capsule 2,000 unit PO DAILY 05/16/20 levothyroxine 50 mcg tablet 50 mcg PO QHS 05/16/20 omeprazole magnesium 20 mg capsule,delayed release 40 mg PO QHS 05/16/20 potassium chloride 10 mEq capsule,extended release 10 meq PO DAILY 05/16/20 triamterene 37.5 mg-hydrochlorothiazide 25 mg capsule 1 cap PO DAILY 05/16/20 fluticasone propionate 50 mcg/actuation nasal spray,suspension (Flonase Allergy Relief) 1 spray intranasal DAILY 04/28/22 oxycodone 5 mg tablet 5 mg PO Q6H PRN pain (scale score 7-10) 3 days #16 tabs 05/06/22 Hospital Course Summary of Care Provided Hospital Course: 72-year-old female admitted for surgical management of pelvic organ prolapse. Patient had surgery and was kept overnight. On postop day 1 noted to have hyponatremia. Hospitalist was consulted. On postop day 2 sodium returned to normal range. Stable for discharge from gynecologic standpoint at that time. Weight / BMI Weight Weight: 73 kg Body Mass Index (BMI) 28.5 ABG / Lab / Microbiology Data Result Diagrams: 05/07/22 05:25 05/08/22 05:45 Laboratory: Laboratory Results - last 24 hr 05/07/22 11:53: Sodium 130 L, Potassium 3.8, Chloride 96 L, Carbon Dioxide 26.0, Anion Gap 8, BUN 21 H, Creatinine 0.82, Estim Creat Clear Calc 50.55, Est GFR (MDRD) Af Amer 88, Est GFR (MDRD) Non-Af 73, BUN/Creatinine Ratio 25.7 H, Glucose 111 H, Calcium 8.2 L 11/18/22 15:58: Urine Osmolality 111, Ur Random Sodium 11, Urine Creatinine < 13.00, Urine Urea Nitrogen 190 05/07/22 16:16: Serum Osmolality 278 L 05/07/22 16:16: Sodium 131 L, Potassium 4.1, Chloride 98, Carbon Dioxide 26.0, Anion Gap 7, BUN 24 H, Creatinine 0.86, Estim Creat Clear Calc 48.19, Est GFR (MDRD) Af Amer 83, Est GFR (MDRD) Non-Af 68, BUN/Creatinine Ratio 27.8 H, Glucose 102, Calcium 7.8 L 05/08/22 05:45: Sodium 142, Potassium 3.8, Chloride 111 H, Carbon Dioxide 24.0, Anion Gap 7, BUN 20 H, Creatinine 0.74, Estim Creat Clear Calc 41.45, Est GFR (MDRD) Af Amer 100, Est GFR (MDRD) Non-Af 82, BUN/Creatinine Ratio 27.2 H, Glucose 91, Calcium 7.7 L D/C Instructions Discharge Diet: No restrictions May resume sexual activity in: 6 weeks Weight Bearing Status: Weight bearing as tolerated Call your doctor if your incision/area has: Continuous Slow Oozing, Increased Redness and Foul Smelling Discharge Call your doctor if you observe: Fever of 101 or Higher, Inability to urinate, Inability to have a bowel movement, Using more than 1 pad per hour, Shortness of breath, Swelling in the ankles, Chest pain and Uncontrolled pain Cleanse incision/area with: Soap & Water and Keep Dressing Clean & Dry Additional Instructions: Follow-up with primary care physician within 1 week postop for further follow-up of resolved hyponatremia. Please Follow Up With: Deanna North DO When: 2 weeks post operative appointment Meaningful Use Info Meaningful Use Diagnoses (Choose all that apply): None applicable Discharge Plan Admission Admit Date/Time: 05/06/22 09:36 Primary Reason for Your Visit: Hysterectomy Attending Provider: Deanna North Primary Care Provider: Carlos Manuel Rm Consulting Providers: Holly Gould Discharge Orders/Prescriptions Prescriptions: New oxycodone 5 mg tablet 5 mg PO Q6H PRN (Reason: pain (scale score 7-10)) 3 Days Qty: 16 0RF Continued potassium chloride 10 MEQ capsule, extended release 10 meq PO DAILY triamterene-hydrochlorothiazid 1 CAP capsule 1 cap PO DAILY levothyroxine 50 MCG tablet 50 mcg PO QHS cholecalciferol (vitamin D3) 2,000 UNIT capsule 2,000 unit PO DAILY omeprazole magnesium 20 MG capsule,delayed release(DR/EC) 40 mg PO QHS fluticasone propionate [Flonase Allergy Relief] 50 mcg/actuation [place],Suspension 1 spray INTRANASAL DAILY Rx Instructions: administer into each nostril Referrals / Follow Up: Carlos Manuel Rm MD [Primary Care Provider] - Disposition Disposition (needs filled in before D/C Order can be placed): Home, Self Care
--- NOTE | 2022-05-08 07:44 | PCM.PN.OB ---
Subjective Subjective Patient feeling well. Voiding spontaneously. Tolerating diet. Pain controlled. Objective Data Objective Data Vital Signs: Vital Signs Temp Pulse Resp BP Pulse Ox O2 Del Method O2 Flow Rate 97.7 F L 79 18 123/57 H 94 Room Air 4 05/08/22 02:12 05/08/22 02:12 05/08/22 02:12 05/08/22 02:12 05/08/22 02:12 05/08/22 02:12 05/06/22 10:45 Oxygen Flow Rate (L/min) 4 Oxygen Delivery Method Room Air Weight: 73 kg Body Mass Index (BMI) 28.5 Intake & Output: Intake and Output for Last 24 Hours 05/06/22 05/07/22 05/08/22 23:59 23:59 23:59 Intake Total 3434 / 3434 2637.08 / 3037.08 1272.92 / 1272.92 Output Total 860 / 860 1000 / 1500 500 / 500 Balance 2574 / 2574 1637.08 / 1537.08 772.92 / 772.92 Lab / Micro Data Attestation: I reviewed the patient's lab results. Result Diagrams: 05/07/22 05:25 05/08/22 05:45 Labs: Laboratory Results - last 24 hr 05/07/22 11:53: Sodium 130 L, Potassium 3.8, Chloride 96 L, Carbon Dioxide 26.0, Anion Gap 8, BUN 21 H, Creatinine 0.82, Estim Creat Clear Calc 50.55, Est GFR (MDRD) Af Amer 88, Est GFR (MDRD) Non-Af 73, BUN/Creatinine Ratio 25.7 H, Glucose 111 H, Calcium 8.2 L 05/07/22 15:58: Urine Osmolality 111, Ur Random Sodium 11, Urine Creatinine < 13.00, Urine Urea Nitrogen 190 05/07/22 16:16: Serum Osmolality 278 L 05/07/22 16:16: Sodium 131 L, Potassium 4.1, Chloride 98, Carbon Dioxide 26.0, Anion Gap 7, BUN 24 H, Creatinine 0.86, Estim Creat Clear Calc 48.19, Est GFR (MDRD) Af Amer 83, Est GFR (MDRD) Non-Af 68, BUN/Creatinine Ratio 27.8 H, Glucose 102, Calcium 7.8 L 05/08/22 05:45: Sodium 142, Potassium 3.8, Chloride 111 H, Carbon Dioxide 24.0, Anion Gap 7, BUN 20 H, Creatinine 0.74, Estim Creat Clear Calc 41.45, Est GFR (MDRD) Af Amer 100, Est GFR (MDRD) Non-Af 82, BUN/Creatinine Ratio 27.2 H, Glucose 91, Calcium 7.7 L Physical Exam Const alert, oriented x3 and no apparent distress General Appearance: cooperative HEENT normocephalic, head/scalp atraumatic, hearing grossly normal bilaterally and moist oral mucous membranes Mouth: oral and palatal mucosa normal Neck no lymphadenopathy and supple Resp normal respiratory effort and no use of accessory muscles Cardio regular rate GI soft to palpation, non-tender and non-distended Extremity normal to inspection, full ROM and no clubbing, cyanosis or edema Neuro oriented x3, CN's II-XII intact bilaterally and moves all extremities Psych affect normal Assessment & Plan (1) Other acute postprocedural pain: PLAN: Postop day 2 status post total vaginal hysterectomy, uterosacral ligament suspension, anterior repair, cystoscopy for pelvic organ prolapse. -Pain controlled. Tolerating diet. -Hyponatremia resolved. Hospitalist consulting, appreciated. -Stable for discharge from gynecologic standpoint. Awaiting hospitalist input. Will see routine postoperative visit, recommend follow-up with primary care physician this week. (2) Hyponatremia:
[2022-05-08 07:51] VITALS: O2SAT 93
--- NOTE | 2022-05-08 08:59 | PN.HOSP_ITS ---
Subjective Subjective Reports mild abdominal pain but feels much better overall. Has not had a bowel movement but is passing gas. Urinating well. Denies chest pain shortness of breath. Denies other complaints today Objective Data Objective Data Vital Signs: Vital Signs Temp Pulse Resp BP Pulse Ox O2 Del Method O2 Flow Rate 97.7 F L 79 18 123/57 H 93 Room Air 4 05/08/22 02:12 05/08/22 02:12 05/08/22 02:12 05/08/22 02:12 05/08/22 07:51 05/08/22 07:51 05/06/22 10:45 Oxygen Flow Rate (L/min) 4 Oxygen Delivery Method Room Air Weight: 73 kg Body Mass Index (BMI) 28.5 Intake & Output: Intake and Output for Last 24 Hours 05/06/22 05/07/22 05/08/22 23:59 23:59 23:59 Intake Total 3434 / 3434 2637.08 / 3037.08 1272.92 / 1272.92 Output Total 860 / 860 1000 / 1500 500 / 500 Balance 2574 / 2574 1637.08 / 1537.08 772.92 / 772.92 Lab / Micro Data Result Diagrams: 05/07/22 05:25 05/08/22 05:45 Labs: Laboratory Results - last 24 hr 05/07/22 11:53: Sodium 130 L, Potassium 3.8, Chloride 96 L, Carbon Dioxide 26.0, Anion Gap 8, BUN 21 H, Creatinine 0.82, Estim Creat Clear Calc 50.55, Est GFR (MDRD) Af Amer 88, Est GFR (MDRD) Non-Af 73, BUN/Creatinine Ratio 25.7 H, Glucose 111 H, Calcium 8.2 L 05/07/22 15:58: Urine Osmolality 111, Ur Random Sodium 11, Urine Creatinine < 13.00, Urine Urea Nitrogen 190 05/07/22 16:16: Serum Osmolality 278 L 05/07/22 16:16: Sodium 131 L, Potassium 4.1, Chloride 98, Carbon Dioxide 26.0, Anion Gap 7, BUN 24 H, Creatinine 0.86, Estim Creat Clear Calc 48.19, Est GFR (MDRD) Af Amer 83, Est GFR (MDRD) Non-Af 68, BUN/Creatinine Ratio 27.8 H, Glucose 102, Calcium 7.8 L 05/08/22 05:45: Sodium 142, Potassium 3.8, Chloride 111 H, Carbon Dioxide 24.0, Anion Gap 7, BUN 20 H, Creatinine 0.74, Estim Creat Clear Calc 41.45, Est GFR (MDRD) Af Amer 100, Est GFR (MDRD) Non-Af 82, BUN/Creatinine Ratio 27.2 H, Glucose 91, Calcium 7.7 L Physical Exam Const alert and no apparent distress Constitutional Narrative: Oriented HEENT normocephalic and head/scalp atraumatic Eyes Eyes Narrative: EOM grossly intact, anicteric Neck supple Resp normal respiratory effort and clear to auscultation bilaterally Cardio regular rate and regular rhythm GI soft to palpation and non-distended Extremity Extremity Narrative: No edema appreciated Neuro moves all extremities Neuro Narrative: No overt focal deficits appreciated Psych Psych Narrative: Cooperative Assessment & Plan Assessment/Plan (1) Hyponatremia: PLAN: Plan #Acute hyponatremia * Sodium normalized Feels well, no complaints Lysed Ultram hydrochlorothiazide on discharge, with current blood pressure readings do not feel it is imperative to NAE start med in hospital. She is agreeable to calling PCP on discharge to follow-up and discuss alternative medications. Okay to discharge from hospital standpoint #PElvic prolapse: management as per primary team gynecology DVT prophylaxis: As per primary team Charges/Coding Visit Charges OBSV E&M: 17691 Subsequent observation care L2
[2022-05-08 09:00] VITALS: BP 127/71; PULSE 77; RESP 18; TEMP 36.6; O2SAT 96
[2022-05-08] MEDS: Enoxaparin 40 MG/0.4 ML Syringe SC (09:00)
[2022-05-08] MEDS: Ensure Plus High Protein 120 ML LIQUID PO (09:00)
[2022-05-08] MEDS: Potassium Chloride Oral Tablet 10 MEQ PO (09:00)
== END 2022-05-08 10:31 | disposition home or self-care (01) ==
LOC: SDC 12:13 → MS3 12:13
PROVIDERS: Anesthesiology; Student in an Organized Health Care Education/Training Program; Admitting Provider Student in an Organized Health Care Education/Training Program; PCP Family Medicine; Referring Provider Student in an Organized Health Care Education/Training Program; Visit Provider Student in an Organized Health Care Education/Training Program
PROC: (CPT 58260; principal; 2022-05-06 07:10)
DX: N81.3 Complete uterovaginal prolapse (principal); E87.1 Hypo-osmolality and hyponatremia; E03.9 Hypothyroidism, unspecified; I10 Essential (primary) hypertension; Z79.899 Other long term (current) drug therapy; Z79.890 Hormone replacement therapy; K21.9 Gastro-esophageal reflux disease without esophagitis; M19.90 Unspecified osteoarthritis, unspecified site
CPT/HCPCS: 58260; 57260; 00944; 36415; 80048; 82570; 82962; 83735; 83930; 83935; 84300; 84443; 84540; 85027; 86850; 86900; 86901; 88307; 93005; 96360; 96361; 96372; 99218; 99251; J7030; J7120; A4216; G0378; G0463; J2405